=== PATIENT | female | born 1975 | race Hispanic/Latino ===

== ENCOUNTER 2017-04-13 20:53 | Emergency (ER) | payer OTHER ==
[2017-04-13] MEDS ORDERED: TYLENOL ONE (21:34)
[2017-04-13] MEDS ORDERED: TYLENOL PO ONE (21:45)
[2017-04-14] MEDS ORDERED: FLEXERIL PO ONE (03:06)
[2017-04-14] MEDS ORDERED: MOTRIN ONE (03:12)
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
[2017-04-14] MEDS ORDERED: MOTRIN PO ONE (03:15)
[2017-04-14 03:24] VITALS: BP 139/90
== END 2017-04-14 03:30 | disposition home or self-care (01) ==
LOC: ED 20:53
DX: S16.1XXA Strain of muscle, fascia and tendon at neck level, initial encounter (principal); V49.49XA Driver injured in collision with other motor vehicles in traffic accident, initial encounter; Y93.9 Activity, unspecified; Y92.9 Unspecified place or not applicable; Y99.9 Unspecified external cause status
CPT/HCPCS: 99282

== ENCOUNTER 2017-08-11 00:30 | Emergency (ER) | payer SELFPAY | END 2017-08-11 01:40 | disposition left against medical advice (07) | LOC: ED 00:30 | DX: Z53.21 Procedure and treatment not carried out due to patient leaving prior to being seen by health care provider (principal) ==

== ENCOUNTER 2018-02-22 05:10 | Emergency (ER) | payer SELFPAY | END 2018-02-22 05:11 | disposition left against medical advice (07) | LOC: ED 05:10 | DX: R51 Headache (principal); Z53.21 Procedure and treatment not carried out due to patient leaving prior to being seen by health care provider ==

== ENCOUNTER 2020-10-06 02:49 | Emergency (ER) | payer OTHER ==
--- NOTE | 2020-10-06 04:02 | Emergency Department Report ---
ED General Adult HPI - General Chief complaint: High BP Stated complaint: ELEVATED BLOOD PRESSURE PUI?: No Time Seen by Provider: 10/06/20 03:45 Source: patient Mode of arrival: Ambulatory Limitations: No Limitations - History of Present Illness Initial comments: Patient is a 45-year-old female that presents emergency room with complaints of tingling in her body and elevated blood pressure. Patient states she took her blood pressure at home it was 210/120. Patient states she then became anxious and came directly to the hospital. Patient states she saw her primary care 2 days ago and had a full physical to include labs and EKG. Patient states that she is on losartan 50 that was started 3 weeks ago. Patient states she does not think the losartan is working. Patient is taking losartan 50 mg daily. Patient denies chest pain. Patient denies shortness of breath. Patient denies blurry vision. Patient denies headache. Patient denies neck stiffness. Patient states she was dizzy. Patient states that her symptoms have all resolved. Patient states that she took a 50 mg of losartan just before coming to the [facility]. Patient states she is feeling much better. Patient denies recent travel. Patient denies recent international travel. Patient denies exposure to the novel coronavirus. Patient denies sick contacts. Patient denies fever and chills. Patient denies cough. Patient denies diarrhea. Patient denies coming in contact with anybody with symptoms of the novel coronavirus. -: Sudden - Related Data Previous Rx's Medication Instructions Recorded Last Taken Type Cyclobenzaprine [Flexeril 10 MG 10 mg PO QHS #20 tablet 04/14/17 Unknown Rx TAB] Ibuprofen [Motrin 800 MG tab] 800 mg PO Q8HR PRN #30 tablet 04/14/17 Unknown Rx Losartan Potassium 50 mg PO BID 15 Days #30 tablet 10/06/20 Unknown Rx Allergies Allergy/AdvReac Type Severity Reaction Status Date / Time sulfamethoxazole Allergy Rash Verified 04/13/17 21:42 [From Bactrim] trimethoprim [From Bactrim] Allergy Rash Verified 04/13/17 21:42 ED Review of Systems ROS: Stated complaint: ELEVATED BLOOD PRESSURE Other details as noted in HPI Constitutional: denies: chills, fever Eyes: denies: eye pain, eye discharge, vision change ENT: denies: ear pain, throat pain Respiratory: denies: cough, shortness of breath, wheezing Cardiovascular: denies: chest pain, palpitations Endocrine: no symptoms reported Gastrointestinal: denies: abdominal pain, nausea, diarrhea Genitourinary: denies: urgency, dysuria, discharge Musculoskeletal: denies: back pain, joint swelling, arthralgia Skin: denies: rash, lesions Neurological: as per HPI. denies: headache, weakness Psychiatric: denies: anxiety, depression Hematological/Lymphatic: denies: easy bleeding, easy bruising ED Past Medical Hx - Past Medical History Previous Medical History?: Yes Hx Hypertension: Yes Additional medical history: Obesity - Surgical History Past Surgical History?: Yes Hx Appendectomy: Yes Additional Surgical History: Abcess - Family History Family history: no significant - Social History Smoking Status: Never Smoker Substance Use Type: None - Medications Home Medications: Home Medications Medication Instructions Recorded Confirmed Last Taken Type Cyclobenzaprine [Flexeril 10 MG 10 mg PO QHS #20 tablet 04/14/17 Unknown Rx TAB] Ibuprofen [Motrin 800 MG tab] 800 mg PO Q8HR PRN #30 tablet 04/14/17 Unknown Rx Losartan Potassium 50 mg PO BID 15 Days #30 tablet 10/06/20 Unknown Rx ED Physical Exam - General Limitations: No Limitations General appearance: alert, in no apparent distress - Head Head exam: Present: atraumatic, normocephalic - Eye Eye exam: Present: normal appearance, PERRL Pupils: Present: normal accommodation - ENT ENT exam: Present: mucous membranes moist - Neck Neck exam: Present: normal inspection, full ROM. Absent: tenderness, meningismus - Respiratory Respiratory exam: Present: normal lung sounds bilaterally. Absent: respiratory distress, wheezes, rales - Cardiovascular Cardiovascular Exam: Present: regular rate, normal rhythm, normal heart sounds. Absent: systolic murmur, diastolic murmur, rubs, gallop - GI/Abdominal GI/Abdominal exam: Present: soft, normal bowel sounds - Rectal Rectal exam: Present: deferred - Extremities Exam Extremities exam: Present: normal inspection - Back Exam Back exam: Present: normal inspection - Neurological Exam Neurological exam: Present: alert, oriented X3 - Psychiatric Psychiatric exam: Present: normal affect, normal mood - Skin Skin exam: Present: warm, dry, intact, normal color. Absent: rash ED Course Vital Signs 10/06/20 02:52 Temperature 97.8 F Pulse Rate 98 H Respiratory 18 Rate Blood Pressure 199/82 O2 Sat by Pulse 100 Oximetry - Reevaluation(s) Reevaluation #1: I discussed all results and clinical findings with patient. I discussed plan of care with patient. Patient agrees with plan of care. Patient is stable for discharge. Patient will be discharged home. Patient given discharge instructions. Patient voiced understanding of discharge instructions. 10/06/20 04:03 ED Medical Decision Making - Medical Decision Making Patient is a 45-year-old female who presents emergency room with elevated blood pressure and anxiety. Patient also complains of tingling all over. Patient took her blood pressure medication just prior to come to the emergency room. Patient symptoms resolved prior to initial evaluation. Patient is currently on losartan 50 mg. Patient's losartan will be increased to 100 mg daily. Patient given a new prescription. Patient recently had a full chemistry and lab work-up for her physical with her primary care and patient does not require further laboratory or emergency room services. Patient stable for discharge. Patient discharged home. - Differential Diagnosis Uncontrolled blood pressure, hypertension, tingling, anxiety Critical care attestation.: If time is entered above; I have spent that time in minutes in the direct care of this critically ill patient, excluding procedure time. ED Disposition Clinical Impression: Hypertensive urgency, Essential hypertension, Tingling Disposition: DC-01 TO HOME OR SELFCARE Is pt being admited?: No Does the pt Need Aspirin: No Condition: Stable Instructions: Hypertension (ED), Hypertension, Adult, [id number], DASH Eating Plan, How to Take Your Blood Pressure Additional Instructions: Patient to follow-up with primary care in 2 to 3 days. Patient to follow-up with payroll bookkeeper in 2 to 3 days. Patient to rest. Patient to increase water. Patient to avoid strenuous exercise or heavy lifting until cleared by payroll bookkeeper. Patient to monitor blood pressure at home. Patient to keep a blood pressure log and take blood pressure log to all follow-up appointments. Patient to eat a low-salt, heart healthy diet. Patient to take meds as directed. Patient to return to the ER if condition worsens, changes or new symptoms arise. Prescriptions: Losartan Potassium 50 mg PO BID 15 Days #30 tablet Referrals: PRIMARY CARE, [Primary Care Provider] - 2-3 Days Time of Disposition: 04:07
[2020-10-06 04:44] VITALS: BP 162/76
== END 2020-10-06 04:44 | disposition home or self-care (01) ==
LOC: ED 02:49
DX: I16.0 Hypertensive urgency (principal); I10 Essential (primary) hypertension; R20.2 Paresthesia of skin; Z90.49 Acquired absence of other specified parts of digestive tract; Z79.1 Long term (current) use of non-steroidal anti-inflammatories (NSAID); Z79.899 Other long term (current) drug therapy; Z88.8 Allergy status to other drugs, medicaments and biological substances
CPT/HCPCS: 99281